=== PATIENT | male | born 1965 | race Caucasian/White ===

== ENCOUNTER → 2025-01-09 12:47 | Outpatient (REF) | payer BC, SELFPAY | LOC: MRI 3T 12:47 | PROVIDERS: ATTENDING PHYSICIAN Surgery; FAMILY PHYSICIAN Registered Nurse | DX: R97.20 Elevated prostate specific antigen [PSA] (principal) | CPT/HCPCS: 72197; A9575 ==

== ENCOUNTER 2025-05-28 08:14 | Day surgery (SDC) | payer BC, SELFPAY | END 2025-05-28 08:15 | disposition home or self-care (01) | LOC: GI 08:14 | PROVIDERS: ATTENDING PHYSICIAN Internal Medicine | DX: Z12.11 Encounter for screening for malignant neoplasm of colon (principal); K64.8 Other hemorrhoids | CPT/HCPCS: G0121 ==